=== PATIENT | female | born 1960 | race Caucasian/White ===

== ENCOUNTER 2017-08-27 11:44 | Emergency (ER) | payer OTHER ==
[2017-08-27 12:01] VITALS: BP 132/88
--- NOTE | 2017-08-27 12:13 | UC ---
Throat Pain/Nasal Ashkan HPI - HPI Summary HPI Summary: sore throat x 3 days, + nasal congestion, cough, pnd no fever, no chills - History of Current Complaint Chief Complaint: UCGeneralIllness Stated Complaint: ST/FEVER/ORTEGA/COUGH Time Seen by Provider: 08/27/17 11:55 Hx Obtained From: Patient Hx Last Menstrual Period: 05/2011 Onset/Duration: Gradual Onset, Lasting Days - 3, Still Present Severity: Mild Pain Intensity: 4 Cough: Nonproductive Associated Signs & Symptoms: Positive: Nasal Discharge. Negative: Dysphagia, FB Sensation, Drooling, Wheezing, Hoarseness, Sinus Discomfort, Fever, Vomiting , Rash - Allergies/Home Medications Allergies/Adverse Reactions: Allergies Allergy/AdvReac Type Severity Reaction Status Date / Time MYCINS AdvReac See Comment Uncoded 07/06/15 10:49 Home Medications: Home Medications Fexofenadine (NF) [Ngozi 180 (NF)] 180 mg PO DAILY 08/27/17 [History Confirmed 08/27/17] PMH/Surg Hx/FS Hx/Imm Hx Previously Healthy: Yes - Surgical History Surgical History: Yes Surgery Procedure, Year, and Place: wisdom teeth - Family History Known Family History: Positive: None Negative: Diabetes - Social History Alcohol Use: Occasionally Substance Use Type: None Smoking Status (MU): Never Smoked Tobacco When Did the Patient Quit Smoking/Using Tobacco: 1992 - Immunization History Most Recent Influenza Vaccination: not this season Review of Systems Constitutional: Negative Skin: Negative Eyes: Negative ENT: Sore Throat, Nasal Discharge Respiratory: Cough Cardiovascular: Negative Is Patient Immunocompromised?: No All Other Systems Reviewed And Are Negative: Yes Physical Exam Triage Information Reviewed: Yes Appearance: Well-Appearing, No Pain Distress, Well-Nourished Vital Signs: Initial Vital Signs Temp 98.5 F 08/27/17 11:56 Pulse 94 08/27/17 11:56 Resp 18 08/27/17 11:56 BP 132/88 08/27/17 11:56 Pulse Ox 100 08/27/17 11:56 Eye Exam: Normal Eyes: Positive: Conjunctiva Clear ENT: Positive: Normal ENT inspection, Hearing grossly normal, Pharynx normal, Nasal congestion, Nasal drainage, TMs normal. Negative: TM bulging, TM dull, TM red Neck: Positive: Supple, Nontender, No Lymphadenopathy Respiratory: Positive: Chest non-tender, Lungs clear, Normal breath sounds, No respiratory distress Cardiovascular: Positive: RRR, No Murmur, Pulses Normal Skin Exam: Normal Throat Pain/Nasal Course/Dx - Differential Dx/Diagnosis Provider Diagnoses: uri Discharge - Sign-Out/Discharge Documenting (check all that apply): Discharge/Admit/Transfer - Discharge Plan Condition: Stable Disposition: HOME Patient Education Materials: Upper Respiratory Infection (ED) Referrals: Frde Layton MD [Primary Care Provider] - If Needed - Billing Disposition and Condition Condition: STABLE Disposition: HOME
== END 2017-08-27 12:15 | disposition home or self-care (01) ==
LOC: UCCORT 11:44
DX: J06.9 Acute upper respiratory infection, unspecified (principal)
CPT/HCPCS: 99211; G0463

== ENCOUNTER 2018-02-04 08:17 | Emergency (ER) | payer OTHER ==
[2018-02-04 08:34] VITALS: BP 122/78
--- NOTE | 2018-02-04 08:49 | UC ---
Throat Pain/Nasal Ashkan HPI - HPI Summary HPI Summary: sinus pain and pressure x 7 days + post nasal drip, nasal congestion , cough no fever, no chills, hx of frequent sinusitis - History of Current Complaint Chief Complaint: UCGeneralIllness Stated Complaint: SINUS PRESSURE Time Seen by Provider: 02/04/18 08:41 Hx Obtained From: Patient Hx Last Menstrual Period: 05/2011 ?: No Onset/Duration: Gradual Onset, Lasting Days - 7, Still Present Severity: Severe Pain Intensity: 8 Cough: Nonproductive Associated Signs & Symptoms: Positive: Sinus Discomfort, Nasal Discharge. Negative: Dysphagia, FB Sensation, Drooling, Wheezing, Hoarseness, Fever, Vomiting, Rash - Allergies/Home Medications Allergies/Adverse Reactions: Allergies Allergy/AdvReac Type Severity Reaction Status Date / Time MYCINS AdvReac See Comment Uncoded 02/04/18 08:34 Home Medications: Home Medications Acetaminophen TAB* [Tylenol TAB*] 650 mg PO Q4H PRN 02/04/18 [History Confirmed 02/04/18] PMH/Surg Hx/FS Hx/Imm Hx - Additional Past Medical History Additional PMH: mono age 20, heptomeglea, enlarged spleen environmental allergies right ear hearing loss hospitalized as a child with pneumonia - Surgical History Surgical History: Yes Surgery Procedure, Year, and Place: wisdom teeth - Family History Known Family History: Positive: None Negative: Diabetes - Social History Alcohol Use: Occasionally Substance Use Type: None Smoking Status (MU): Former Smoker When Did the Patient Quit Smoking/Using Tobacco: 1992 - Immunization History Most Recent Influenza Vaccination: not this season Review of Systems Constitutional: Chills Skin: Negative Eyes: Negative ENT: Nasal Discharge, Sinus Congestion, Sinus Pain/Tenderness Respiratory: Cough Cardiovascular: Negative Is Patient Immunocompromised?: No All Other Systems Reviewed And Are Negative: Yes Physical Exam Triage Information Reviewed: Yes Appearance: Well-Appearing, No Pain Distress, Well-Nourished Vital Signs: Initial Vital Signs Temp 100 F 02/04/18 08:31 Pulse 93 02/04/18 08:31 Resp 15 02/04/18 08:31 BP 122/78 02/04/18 08:31 Pulse Ox 100 02/04/18 08:31 Vital Signs Reviewed: Yes Eye Exam: Normal Eyes: Positive: Conjunctiva Clear ENT: Positive: Normal ENT inspection, Hearing grossly normal, Pharyngeal erythema, Nasal drainage, TMs normal, Sinus tenderness. Negative: Tonsillar swelling, Tonsillar exudate, Hoarse voice, Dental tenderness Neck: Positive: Supple, Nontender, No Lymphadenopathy Respiratory: Positive: Chest non-tender, Lungs clear, Normal breath sounds Cardiovascular: Positive: RRR, No Murmur, Pulses Normal Skin Exam: Normal Throat Pain/Nasal Course/Dx - Differential Dx/Diagnosis Provider Diagnoses: sinusitis Discharge - Sign-Out/Discharge Documenting (check all that apply): Patient Departure All imaging exams completed and their final reports reviewed: No Studies - Discharge Plan Condition: Stable Disposition: HOME Prescriptions: Amoxicillin/Clavulanate TAB* [Augmentin TAB 875*] 875 mg PO BID #10 tab Fluticasone NASAL SPRAY 50MCG* [Flonase NASAL SPRAY 50MCG*] 2 spray BOTH NARES DAILY #1 btl Patient Education Materials: Sinusitis (ED) Referrals: Fred Layton MD [Primary Care Provider] - If Needed - Billing Disposition and Condition Condition: STABLE Disposition: Home
== END 2018-02-04 08:50 | disposition home or self-care (01) ==
LOC: UCCORT 08:17
DX: J32.9 Chronic sinusitis, unspecified (principal); R16.1 Splenomegaly, not elsewhere classified; J30.2 Other seasonal allergic rhinitis; Z87.891 Personal history of nicotine dependence; Z88.1 Allergy status to other antibiotic agents
CPT/HCPCS: 99212; G0463

== ENCOUNTER 2018-10-12 19:16 | Emergency (ER) | payer OTHER ==
[2018-10-12 19:42] VITALS: BP 138/82
--- NOTE | 2018-10-12 20:00 | UC ---
Skin Complaint HPI - HPI Summary HPI Summary: Was bitten by something in the garden yesterday. Noticed bleeding. Some itching. Noticed pain radiating down the forearm into the wrist. - History of Current Complaint Chief Complaint: UCSkin Stated Complaint: INSECT BITE LEFT FOREARM Hx Obtained From: Patient Hx Last Menstrual Period: 05/2011 ?: No Onset/Duration: Sudden Onset, Lasting Days - 1, Worse Since - today Skin Exposure Onset/Duration: Days Ago - 1 Onset Severity: Mild Current Severity: Moderate Pain Intensity: 4 Location: Discrete - left forearm Character: Swelling, Pruritus, Pain, Redness, Raised Aggravating Factor(s): Touch Alleviating Factor(s): Nothing Associated Signs & Symptoms: Negative: Nausea, Vomiting, Numbness, Diaphoresis, Weakness, Fever, Chills, Tenderness, Red Streaks Related History: Insect Bite/Sting - Allergy/Home Medications Allergies/Adverse Reactions: Allergies Allergy/AdvReac Type Severity Reaction Status Date / Time MYCINS AdvReac See Comment Uncoded 02/04/18 08:34 Home Medications: Home Medications Ascorbic Acid TAB* [Vitamin C TAB*] 500 mg PO DAILY 10/12/18 [History Confirmed 10/12/18] PMH/Surg Hx/FS Hx/Imm Hx - Additional Past Medical History Additional PMH: Anemia - Surgical History Surgical History: Yes Surgery Procedure, Year, and Place: wisdom teeth - Family History Known Family History: Positive: None, Hypertension Negative: Diabetes - Social History Occupation: Employed Full-time Lives: Alone Alcohol Use: Rare Substance Use Type: None Smoking Status (MU): Former Smoker When Did the Patient Quit Smoking/Using Tobacco: 1992 - Immunization History Most Recent Influenza Vaccination: not this season Review of Systems All Other Systems Reviewed And Are Negative: Yes Skin: Positive: Other - insect bite left forearm Physical Exam Triage Information Reviewed: Yes Appearance: Well-Appearing, No Pain Distress, Well-Nourished Vital Signs: Initial Vital Signs Temp 98.3 F 10/12/18 19:37 Pulse 80 10/12/18 19:37 Resp 16 10/12/18 19:37 BP 138/82 10/12/18 19:37 Pulse Ox 98 10/12/18 19:37 Vital Signs Reviewed: Yes Eyes: Positive: Conjunctiva Clear Neck exam: Normal Respiratory Exam: Normal Cardiovascular Exam: Normal Musculoskeletal Exam: Normal Neurological: Positive: Other: - increased pinprick sensation distal to the insect bite down to the wrist. Psychological Exam: Normal Skin: Positive: Other - left forearm insect bite with swelling and redness 3x4 cm Course/Dx - Differential Diagnoses - Skin Complaint Differential Diagnoses: Abscess, Anaphylaxis, Contact Dermatitis, Lymphangitis, Tick Born Illness - Diagnoses Provider Diagnosis: Insect bite, Neuralgia and neuritis, unspecified Discharge - Sign-Out/Discharge Documenting (check all that apply): Patient Departure All imaging exams completed and their final reports reviewed: No Studies - Discharge Plan Condition: Stable Disposition: HOME Patient Education Materials: Insect Bite or Sting (ED) Referrals: Fred Layton MD [Primary Care Provider] - Additional Instructions: The pain is due to nerve irritation under the sting. It should gradually resolve. Use ice over the bite. - Billing Disposition and Condition Condition: STABLE Disposition: Home
== END 2018-10-12 20:09 | disposition home or self-care (01) ==
LOC: UCCORT 19:16
DX: S50.862A Insect bite (nonvenomous) of left forearm, initial encounter (principal); W57.XXXA Bitten or stung by nonvenomous insect and other nonvenomous arthropods, initial encounter; Y92.001 Dining room of unspecified non-institutional (private) residence as the place of occurrence of the external cause; M79.2 Neuralgia and neuritis, unspecified; Z87.891 Personal history of nicotine dependence
CPT/HCPCS: 99211; G0463

== ENCOUNTER 2019-06-29 16:45 | Emergency (ER) | payer OTHER ==
[2019-06-29 17:04] VITALS: BP 135/80
--- NOTE | 2019-06-29 17:14 | UC ---
FLU HPI - HPI Summary HPI Summary: pt states she has been exposed to flu on saturday06/26/19. pt states head ache, sneezing, scratchy throat and low grade fever 99.4, started last evening. - History of Current Complaint Chief Complaint: UCGeneralIllness Stated Complaint: FLU EXP, HEADACHE, FEVER, ST Time Seen by Provider: 06/29/19 17:07 Hx Obtained From: Patient Hx Last Menstrual Period: 05/2011 ?: No Onset/Duration: Sudden Onset, Lasting Days Severity Currently: Mild Severity Initially: Moderate Pain Intensity: 4 Associated Signs & Symptoms: Positive: Fever, Myalgia, Sore Throat, Nasal Congestion, Headache - Allergy/Home Medications Allergies/Adverse Reactions: Allergies Allergy/AdvReac Type Severity Reaction Status Date / Time MYCINS AdvReac See Comment Uncoded 06/29/19 17:04 Home Medications: Home Medications Vitamin B Complex TAB* [B Complex-50*] 1 tab PO DAILY 03/21/15 [History Confirmed 06/29/19] Fexofenadine (NF) [Ngozi 180 (NF)] 180 mg PO DAILY PRN 08/27/17 [History Confirmed 06/29/19] Acetaminophen TAB* [Tylenol TAB*] 650 mg PO Q4H PRN 02/04/18 [History Confirmed 06/29/19] Ascorbic Acid TAB* [Vitamin C TAB*] 500 mg PO BID 10/12/18 [History Confirmed 06/29/19] Calcium Citrate/Vitamin D2 [Calcium with Vit D Tablet] 1 each PO DAILY 06/29/19 [History Confirmed 06/29/19] Castaner-3 Fatty Acids/Fish Oil [Castaner 3] 1 cap PO BID 06/29/19 [History Confirmed 06/29/19] PMH/Surg Hx/FS Hx/Imm Hx Previously Healthy: Yes - Surgical History Surgical History: Yes Surgery Procedure, Year, and Place: wisdom teeth - Family History Known Family History: Positive: None, Hypertension Negative: Diabetes - Social History Alcohol Use: Rare Substance Use Type: None Smoking Status (MU): Former Smoker When Did the Patient Quit Smoking/Using Tobacco: 1992 - Immunization History Most Recent Influenza Vaccination: not this season Review of Systems All Other Systems Reviewed And Are Negative: Yes Constitutional: Positive: Fever, Chills, Fatigue ENT: Positive: Sore Throat, Sinus Congestion Respiratory: Positive: Cough Neurological/Mental Status: Positive: Headache Is Patient Immunocompromised?: No Physical Exam Triage Information Reviewed: Yes Appearance: Well-Nourished, Ill-Appearing, Pain Distress Vital Signs: Initial Vital Signs Temp 98.3 F 06/29/19 16:58 Pulse 90 06/29/19 16:58 Resp 16 06/29/19 16:58 BP 135/80 06/29/19 16:58 Pulse Ox 100 06/29/19 16:58 Vital Signs Reviewed: Yes ENT: Positive: Pharyngeal erythema, TM bulging, TM red Neck exam: Normal Respiratory Exam: Normal Respiratory: Positive: Chest non-tender, Lungs clear, Normal breath sounds, Other: - cough present Cardiovascular Exam: Normal Cardiovascular: Positive: RRR, No Murmur, Pulses Normal Bowel Sounds: Positive: Present Musculoskeletal Exam: Normal Neurological Exam: Normal Psychological Exam: Normal Skin Exam: Normal Flu Course/Dx - Course Course Of Treatment: hx obtained, exam performed ,meds reviewed, rapid flu obtained. - Differential Dx/Diagnosis Differential Diagnosis/HQI/PQRI: Influenza Provider Diagnosis: Viral syndrome Discharge ED - Sign-Out/Discharge Documenting (check all that apply): Patient Departure All imaging exams completed and their final reports reviewed: No Studies - Discharge Plan Condition: Stable Disposition: HOME Patient Education Materials: Viral Syndrome (ED) Referrals: Fred Layton MD [Primary Care Provider] - Additional Instructions: 1. increase fluids and get rest 2. Use the flonase daily due to the fluid in your ears and increased sinus pressure. 3. Tylenol and ibuprofen as needed. - Billing Disposition and Condition Condition: STABLE Disposition: Home
[2019-06-29 17:18] LABS: Influenza A Molecular Negative (Negative); Influenza B Molecular Negative (Negative)
== END 2019-06-29 17:43 | disposition home or self-care (01) ==
LOC: UCCORT 16:45
DX: B34.9 Viral infection, unspecified (principal); Z88.1 Allergy status to other antibiotic agents; R51 Headache; R06.7 Sneezing; J02.9 Acute pharyngitis, unspecified; Z87.891 Personal history of nicotine dependence
CPT/HCPCS: 99211; G0463